=== PATIENT | male | born 1990 | race Caucasian/White ===

== ENCOUNTER 2019-08-20 01:48 | Emergency (ER) | payer BC ==
[~2019-08-20] VITALS: Ht 188 cm; Wt 99.2 kg
[2019-08-20 01:48] VITALS: BP 128/89
--- NOTE | 2019-08-20 01:59 | PHYS DOC ---
Past History Past Medical History: No Pertinent History General Adult EDM: Chief Complaint: ALLERGIES HPI: HPI: Healthy 29M with Hx seasonal allergies, p/w worsening of usual allergy Sx. Reports 2 days of worsening sinus pressure, nasal congestion, itchy throat and occasional dry cough. No CP or SOA. OTC meds with minimal efficacy. No fever. Review of Systems: Review of Systems: Gen: No fever, chills. Eyes: No blurred vision, diplopia. ENT: Reports nasal congestion, sore throat. CV: No CP, palpitations. Resp. No SOB. Reports cough. GI: No abd pain, N/V. Neuro: No SUTTON, dizziness Skin: No acute rash or lesion. Heart Score: Risk Factors: Risk Factors: DM, Current or recent (<one month) smoker, HTN, HLP, family history of CAD, obesity. Risk Scores: Score 0 - 3: 2.5% MACE over next 6 weeks - Discharge Home Score 4 - 6: 20.3% MACE over next 6 weeks - Admit for Clinical Observation Score 7 - 10: 72.7% MACE over next 6 weeks - Early Invasive Strategies Allergies: Allergies: Allergies Coded Allergies Type Severity Reaction Last Updated Verified No Known Drug Allergies 08/20/19 No Physical Exam: PE: Gen: NAD. Well nourished. Head: NC/AT. Eyes: No scleral icterus. No conjunctival injection. Cobblestoning BL lower eye lids. ENT: MMM. Posterior OP clear with some linear streaking. Uvula midline. No tonsillar hypertrophy or exudate. Neck: Supple. . CV: RRR. Peripheral pulses intact. Resp: CTAB. No W/C/R. Abd: Soft. NT. ND. MSK: No peripheral cyanosis. No edema. Neuro: Awake and alert. Skin. Warm. Dry. Psych: Appropriate mood & affect. EKG: EKG: [] Radiology/Procedures: Radiology/Procedures: [] Course & Med Decision Making: Course & Med Decision Making Pertinent Labs and Imaging studies reviewed. (See chart for details) In summary, 29M p/w likely Sx of allergic rhinitis. Unremarkable exam. Doubt bacterial sinusitis or pneumonia. Will give one time dose dex 10 mg PO. Advised increasing zyrtec to BID or consider zyrtec-D. Continue Flonase. DC home with outpatient FU. Return precautions given. Adamaris Disclaimer: Adamaris Disclaimer: This electronic medical record was generated, in whole or in part, using a voice recognition dictation system. Departure Departure: Impression: Primary Impression: Allergic rhinitis Disposition: HOME/RESIDENCE PRIOR TO ADM Condition: STABLE Patient Instructions: Allergic Rhinitis Additional Instructions: Please continue your home medications. Considering taking your zyrtec 10 mg twice daily (as opposed to once daily). Continue your Flonase as well. Consider switching to Zyrtec-D, which has a decongestant as well. Justification of Admission: Justification of Admission: Justification of Admission Dx: N/A SOHAN STATON DO Aug 20, 2019 01:59
[2019-08-20] MEDS ORDERED: DEXAMETHASONE 4 MG TABLET PO ONE (02:00)
[2019-08-20] MEDS ORDERED: DEXAMETHASONE 4 MG TABLET ONE (02:02)
== END 2019-08-20 02:06 | disposition home or self-care (01) ==
LOC: ER 01:48
DX: J30.9 Allergic rhinitis, unspecified (principal); R09.81 Nasal congestion; R05 Cough
CPT/HCPCS: 99283; J8540